=== PATIENT | male | born 1965 | race African-American/Black ===

== ENCOUNTER 2018-04-05 18:16 | Emergency (ER) | payer MEDICAID ==
[~2018-04-05] VITALS: Ht 162.6 cm; Wt 70.0 kg
[2018-04-06] MEDS ORDERED: IBUPROFEN 600MG TABLET PO ONE (01:00)
[2018-04-06 01:05] VITALS: BP 136/78
== END 2018-04-06 01:45 | disposition left against medical advice (07) ==
LOC: ER 18:16
DX: M79.645 Pain in left finger(s) (principal); Y08.89XA Assault by other specified means, initial encounter; Y93.89 Activity, other specified; Y92.89 Other specified places as the place of occurrence of the external cause; Y99.8 Other external cause status
CPT/HCPCS: 99282

== ENCOUNTER 2019-08-06 10:14 | Emergency (ER) | payer MEDICAID ==
[~2019-08-06] VITALS: Ht 165.1 cm; Wt 61.0 kg
[2019-08-06] MEDS ORDERED: ONDANSETRON HCL 4MG/2ML INJ IV STA ×2 (11:08→12:54)
[2019-08-06] MEDS ORDERED: SODIUM CHLORIDE 0.9% 1,000 ML IV ONE (11:08)
[2019-08-06] MEDS ORDERED: KETOROLAC 30MG/ML VIAL IV STA (11:08)
[2019-08-06] MEDS ORDERED: DICYCLOMINE 10 MG/5 ML ORAL SYR PO STA (11:08)
[2019-08-06] MEDS ORDERED: MAGNESIUM/ALUMINUM HYDROXIDE/SIMETHICONE 30ML UDC PO STA (11:08)
[2019-08-06 11:34] LABS: CHLORIDE 106 mEq/L (98-107)
[2019-08-06 11:35] LABS: BASOPHILS % 0.2 % (0.0-2.0); EOSINOPHILS % 0.3 % (0.0-5.0); HEMATOCRIT. 47.1 % (42.0-52.0); HEMOGLOBIN. 16.2 g/dL (14.0-18.0); LYMPHOCYTES % 18.5 % (20.0-50.0); MEAN CORPUSCULAR HEMOGLOBIN 33.9 pg (28.0-32.0); MEAN CORPUSCULAR VOLUME 98.6 fL (80.0-94.0); MONOCYTES % 6.3 % (2.0-8.0); NEUTROPHILS % 74.7 % (40.0-76.0); PLATELET 198 x1000/uL (130-400); RED BLOOD CELL COUNT 4.78 mill/uL (4.7-6.1); RED CELL DISTRIBUTION WIDTH 13.2 % (11.6-14.6)
[2019-08-06 11:39] LABS: ETHANOL BLOOD < 10 mg/dL
[2019-08-06 11:40] LABS: PROTHROMBIN TIME 10.5 sec (9.6-11.0)
[2019-08-06] MEDS ORDERED: MORPHINE SULFATE 4 MG/ML CPJ (NOT FOR IM USE) IV STA (12:54)
[2019-08-06 13:18] VITALS: BP 104/68
== END 2019-08-06 13:21 | disposition home or self-care (01) ==
LOC: ER 10:14
DX: K52.9 Noninfective gastroenteritis and colitis, unspecified (principal); Z98.890 Other specified postprocedural states
CPT/HCPCS: 36415; 71045; 74176; 80053; 80320; 83690; 85025; 85610; 93005; 96361; 96374; 96375; 96376; 99285; J1885; J2270; J2405; J7030; G0480